=== PATIENT | male | born 1955 | race Caucasian/White ===

== ENCOUNTER → 2017-01-13 | Outpatient (CLI) | payer OTHER ==
--- NOTE | 2017-01-13 08:11 | CT ---
EXAMINATION TYPE: CT abdomen w con DATE OF EXAM: 01/13/2017 COMPARISON: NONE INDICATION: Left upper quadrant pain DLP: 1372 mGycm, Automated exposure control for dose reduction was used. CONTRAST: 100 mL of Omnipaque 300. Study performed with Oral Contrast TECHNIQUE: Axial images were obtained from above the diaphragm to the pubic rami in the axial plane a t 5 mm thick sections. Reconstructed images are reviewed on the computer in the coronal plane. FINDINGS: Limited CT sections are obtained the lung bases. The lung bases are clear. CT ABDOMEN: Liver: Normal Spleen: Normal Pancreas: Normal Adrenal glands: The adrenal glands are normal. Gallbladder: Some minimal fluid is adjacent to the gallbladder. A large gallstone is within the proxi mal gallbladder. Correlate for cholecystitis. No obvious common duct dilatation is evident. Kidneys: No masses are evident. No hydronephrosis is present. No cysts are present. Delayed images were obtained through the kidneys, tiny cortical renal cysts of the superior right kidney is evident . Aorta: Vascular calcification is within the aorta. Inferior vena cava: Normal. Loops of bowel within the abdomen and pelvis are normal. There are loops of bowel which are incom pletely distended or lack oral contrast limiting their evaluation. IMPRESSIONS: 1. Clinical consideration for acute cholecystitis is recommended. Consider correlation with ultrasou nd. 2. Moderate fecal debris throughout the visualized colon. No obstruction is evident.
== END | disposition home or self-care (01) ==
LOC: RADCTMAIN 06:14
PROVIDERS: ATTEND Family Medicine
DX: R10.12 Left upper quadrant pain (principal)
CPT/HCPCS: 74160; Q9967

== ENCOUNTER 2017-01-23 10:05 | Day surgery (SDC) | payer OTHER ==
[2017-01-22 08:36] VITALS: BMI 33.0
[~2017-01-23 10:05] MED LIST: DEXAMETHASONE SOD PHOSPHATE 10 MG/ML 1 ML VIAL IV ONE; HEPARIN SODIUM,PORCINE 5,000 UNIT/ML 1 ML VIAL SQ ONE; LACTATED RINGERS 1,000 ML IV SCH; MIDAZOLAM 2 MG/2 ML VIAL IV PRN; ONDANSETRON 4 MG/2 ML VIAL IVP ONE; SCOPOLAMINE 1.5MG/72HR PATCH TRANSDERM ONE; ceFAZolin 2 GM in SODIUM CHLORIDE 0.9% 100 ML IVPB ONE
[2017-01-23] MEDS ORDERED: LIDOCAINE 1% 20 ML VIAL (10MG/ML) FOR IV START INTRADERMA ONE (11:00)
[2017-01-23 11:23] VITALS: TEMP 97.9
--- NOTE | 2017-01-23 13:14 | P.GSHP ---
History of Present Illness H&P Date: 01/23/17 Chief Complaint: Right upper quadrant pain This is a 61-year-old male who has had complaints right quadrant pain. Patient recent HIDA scan which was abnormal ejection fraction. He presents today for laparoscopic cholecystectomy. Past Medical History Past Medical History: Deep Vein Thrombosis (DVT), Hyperlipidemia, Osteoarthritis (OA) Additional Past Medical History / Comment(s): HAND TREMORS, DVT RT LEG AFTER KNEE REPLACEMENT, HX OF INFECTION POST-OP RIGHT KNEE W/MRSA 2014, generalized abd. pain History of Any Multi-Drug Resistant Organisms: MRSA Date of last positivie culture/infection: 08/30/14 MDRO Source:: RIGHT KNEE Past Surgical History: Joint Replacement, Orthopedic Surgery Additional Past Surgical History / Comment(s): LEFT KNEE ARTHROSCOPY, RT KNEE REPLACEMENT - REVISION OF RT KNEE REPLACEMENT ON 06/2014 AND 08/2014., HX OF PICC LINE 08/2014. Revision Right knee 11/28/14 Past Anesthesia/Blood Transfusion Reactions: No Reported Reaction, Motion Sickness Smoking Status: Current every day smoker - Past Family History Mother Family Medical History: Cancer Additional Family Medical History / Comment(s): BRAIN CA Father Family Medical History: Diabetes Mellitus Medications and Allergies Home Medications Medication Instructions Recorded Confirmed Type Atorvastatin [Lipitor] 20 mg PO DAILY 09/20/13 01/23/17 History Magnesium 200 mg PO DAILY 01/22/17 01/23/17 History Primidone [Mysoline] 100 mg PO DAILY 01/22/17 01/23/17 History buPROPion XL [Wellbutrin Xl] 150 mg PO DAILY 01/22/17 01/23/17 History Allergies Allergy/AdvReac Type Severity Reaction Status Date / Time No Known Allergies Allergy Verified 01/23/17 10:43 Surgical - Exam Vital Signs Temp Pulse Resp BP Pulse Ox 97.9 F 75 18 129/83 98 01/23/17 10:40 01/23/17 10:40 01/23/17 10:40 01/23/17 10:40 01/23/17 10:40 - General well developed, no distress - Eyes PERRL - ENT normal pinna - Neck no masses - Respiratory normal expansion - Cardiovascular Rhythm: regular - Abdomen Abdomen: soft, non tender Assessment and Plan Plan: Right upper quadrant pain. We'll perform laparoscopic cholecystectomy.
[2017-01-23] MEDS ORDERED: NEOSTIGMINE 1 MG/ML 10 ML VIAL ONE (13:20)
[2017-01-23] MEDS ORDERED: LIDOCAINE 1% INJ 10MG/ML (20 ML MDV) ONE (13:20)
[2017-01-23] MEDS ORDERED: fentaNYL (PF) 50 MCG/ML 2 ML AMP ONE (13:20)
[2017-01-23] MEDS ORDERED: PHENYLEPHRINE-0.9% NACL SYG 1 MG/10 ML SYRINGE ONE (13:20)
[2017-01-23] MEDS ORDERED: ROCURONIUM BROMIDE 10 MG/ML 10 ML VIAL IV ONE (13:20)
[2017-01-23] MEDS ORDERED: MIDAZOLAM 2 MG/2 ML VIAL ONE (13:20)
[2017-01-23] MEDS ORDERED: HYDROmorphone (PF) 1 MG/ML ONE (13:20)
[2017-01-23] MEDS ORDERED: GLYCOPYRROLATE 0.2 MG/ML 2 ML VIAL ONE (13:20)
[2017-01-23] MEDS ORDERED: PROPOFOL 10 MG/ML 20 ML VIAL IV ONE (13:20)
[2017-01-23] MEDS ORDERED: SUCCINYLCHOLINE CHLORIDE 100 MG/5 ML SYR IV ONE (13:20)
[2017-01-23] MEDS ORDERED: BUPIVACAINE (PF) 0.25% 30 ML VIAL SQ ONE ×2 (13:41)
[2017-01-23] MEDS ORDERED: LACTATED RINGERS 1,000 ML IV ONE (14:06)
--- NOTE | 2017-01-23 14:46 | P.OP ---
Date of Procedure: 01/23/17 Preoperative Diagnosis: Cholecystitis Postoperative Diagnosis: Cholelithiasis Acute Cholecystitis Hydrops gallbladder Procedure(s) Performed: Laparoscopic cholecystectomy Anesthesia: AUBREY Surgeon: Blake Aden Estimated Blood Loss (ml): 100 Pathology: other (Gallbladder) Condition: stable Disposition: PACU Description of Procedure: The patient was placed on the operating table. The patient received a general endotracheal tube anesthesia. The patients abdomen was prepped and draped in the usual sterile fashion. Through an infraumbilical stab incision, the fascia of the anterior abdominal wall was grasped with a pair of Kochers and then the Veress needle was placed in the peritoneal cavity. Position of the Veress needle was confirmed with positive drop test. The abdomen was then insufflated. After adequate insufflation, the 10 mm trocar was placed in the peritoneal cavity. Following this the laparoscope was placed in the peritoneal cavity. The patient was placed in the head-up, right side up position and then a 5 mm trocar was placed in the right lateral and right subcostal position under direct visualization. A 8 mm trocar was placed in the epigastric position. The gallbladder was acutely inflamed. There appeared to be hydrops of gallbladder. There was a stone impacted in the neck of the gallbladder. The gallbladder was grasped in the fundus and infundibulum. Traction on the gallbladder was placed in the lateral and the cephalad positions. The triangle of Calot was visualized.. The cystic duct was bluntly dissected until the union of the cystic duct and common bile duct was seen. The cystic duct was then divided and sealed with the Harmonic scissors. A PDS Endoloop was then placed throughout the cystic duct stump. The cystic artery divided and sealed with the Harmonic scissors. The gallbladder was then removed from the liver bed using Harmonic scissors. The gallbladder was then extracted through the epigastric port site. Operative field was checked for any bleeding spots and Harmonic scissors was used to coagulate the liver bed. The abdomen was irrigated. The trocars were removed. The skin was closed using interrupted 3-0 Vicryl suture. Dermabond dressing were applied. The patient tolerated the procedure well.
[2017-01-23 14:51] VITALS: RESP 16
[2017-01-23] MEDS: HYDROmorphone 1 MG/ML 1 ML SYRINGE IVP PRN ×2 (15:25→15:35)
[2017-01-23] MEDS ORDERED: HYDROcodone/APAP 7.5-325MG 1 EACH TAB PO ONE (16:16)
[2017-01-23 17:02] VITALS: BP 136/80; PULSE 78
== END 2017-01-23 17:19 | disposition home or self-care (01) ==
LOC: OR 10:05
PROVIDERS: ATTEND Surgery
DX: K80.12 Calculus of gallbladder with acute and chronic cholecystitis without obstruction (principal); E78.5 Hyperlipidemia, unspecified; M19.90 Unspecified osteoarthritis, unspecified site; F17.200 Nicotine dependence, unspecified, uncomplicated; Z86.718 Personal history of other venous thrombosis and embolism; G25.0 Essential tremor; Z79.899 Other long term (current) drug therapy
CPT/HCPCS: 88304; 47562; J2250; J1644; J1100; J2710; J0690; J2405; J2001; J3010; J1170; J2370; J0330; J2704

== ENCOUNTER 2017-06-30 07:17 | Day surgery (SDC) | payer OTHER ==
[2017-06-25 13:48] VITALS: BMI 33.2
[~2017-06-30 07:17] MED LIST changes: -DEXAMETHASONE SOD PHOSPHATE 10 MG/ML 1 ML VIAL IV ONE; -HEPARIN SODIUM,PORCINE 5,000 UNIT/ML 1 ML VIAL SQ ONE; -MIDAZOLAM 2 MG/2 ML VIAL IV PRN; -ONDANSETRON 4 MG/2 ML VIAL IVP ONE; -SCOPOLAMINE 1.5MG/72HR PATCH TRANSDERM ONE; -ceFAZolin 2 GM in SODIUM CHLORIDE 0.9% 100 ML IVPB ONE
[2017-06-30] MEDS ORDERED: LACTATED RINGERS 1,000 ML IV ONE ×2 (07:36)
[2017-06-30 07:41] VITALS: RESP 18; TEMP 97.7
[2017-06-30] MEDS ORDERED: PROPOFOL 10 MG/ML 20 ML VIAL IV ONE (08:12)
--- NOTE | 2017-06-30 08:40 | P.PCN ---
Date of Procedure: 06/30/17 Procedure(s) Performed: Procedure: Total colonoscopy with biopsies. Preoperative diagnosis: Screening for neoplasia. Postoperative diagnosis: 2 diminutive polyps in the distal sigmoid consistent with hyperplastic polyps, biopsied, but no large polyps or cancer. Preparation: HalfLytely prep. Sedation: Was provided by anesthesia. Brief clinical history: The patient is a 61-year-old male who is scheduled for this evaluation for screening for neoplasia. The patient has family history of colon cancer in his father. He had a colonoscopy around 10 years ago. He has no abdominal complaints, bleeding or anemia. Procedure: With the patient on his left lateral decubitus position and after informed consent and adequate sedation, the perianal area was inspected and it did not show any fissures or fistulas. There were no masses felt on digital rectal examination. The Olympus CFQ 160L video colonoscope was then inserted in the rectum in the usual fashion and advanced to the cecum. There were 2 diminutive polyps in the distal sigmoid consistent with hyperplastic polyps which I biopsied, but there were no large polyps or cancer. No obvious diverticular disease or other pathology. I retroflexed the endoscope in the rectum before the endoscope was withdrawn. The patient tolerated the procedure well. Plan: The patient was reassured. In light of his history, I recommended repeat exam in 5 years. He will follow up with you as planned.
[2017-06-30 08:55] VITALS: BP 107/60; PULSE 78
== END 2017-06-30 09:22 | disposition home or self-care (01) ==
LOC: ORWHC2ENDO 07:17
DX: Z12.11 Encounter for screening for malignant neoplasm of colon (principal); D12.5 Benign neoplasm of sigmoid colon; Z80.0 Family history of malignant neoplasm of digestive organs; M19.90 Unspecified osteoarthritis, unspecified site; E78.5 Hyperlipidemia, unspecified; Z86.718 Personal history of other venous thrombosis and embolism; Z79.899 Other long term (current) drug therapy
CPT/HCPCS: 88305; 45380; J2704

== ENCOUNTER → 2017-08-17 | Outpatient (CLI) | payer OTHER ==
--- NOTE | 2017-08-17 09:44 | FL ---
ESOPHOGRAM. HISTORY: Dysphagia Esophagram was performed per the air contrast technique. The patient swallowed barium and effervesce nt crystals without difficulty or delay. Esophageal peristalsis and motility appear to be within normal limits. There is no evidence for filling defect, mass or diverticulum. No hiatal hernia seen. Subsequently single contrast cervical esophagram was performed which fails demonstrate evidence for m ass. Mild aspiration is noted. There is extrinsic mass effect upon the posterior esophagus at the C4- 5 level secondary to large anterior cervical osteophytes. IMPRESSION: 1. Aspiration. 2. Large C4-5 anterior osteophyte that results in posterior mass effect upon the cervical esophagus.
== END | disposition home or self-care (01) ==
LOC: RADFLMAIN 08:35
PROVIDERS: ATTEND Psychiatry & Neurology Neurology
DX: M25.78 Osteophyte, vertebrae (principal)
CPT/HCPCS: 74220

== ENCOUNTER → 2017-08-27 | Outpatient (CLI) | payer OTHER ==
--- NOTE | 2017-08-27 08:49 | MR ---
MRI BRAIN AND CERVICAL SPINE: 08/27/2017 CLINICAL HISTORY: Essential tremors, neck pain, and dysphagia. TECHNIQUE: Multiplanar, multisequence imaging of the cervical spine is performed without intravenous contrast. Multiplanar, multisequence images of the brain and brainstem is performed without intraveno us contrast. COMPARISON: CT brain dated 05/05/2015 FINDINGS: Brain: Diffusion weighted images demonstrate no evidence of a recent infarct or other diffusion abnor mality. There is no extra-axial fluid collection. Minimal periventricular white matter changes seen anterior to the frontal horns of the lateral ventricles. The remainder of the white matter signal is unremarkable. The ventricular system and cisternal spaces are normal in size and appearance. The bra in volume is age appropriate. Midline structures demonstrate normal morphology. The craniocervical junction appears within normal limits. Post contrast images demonstrate no abnormal enhancement. The dural venous sinuses appear pa tent. There is circumferential mild mucosal thickening of the frontal sinuses and moderate mucosal th ickening of the ethmoid sinuses. Secretions are retained within the posterior nasopharynx. The spheno id sinuses and maxillary sinuses are well aerated as are the mastoid air cells on the left. There is partial opacification of the right mastoid air cells. Major intracranial flow voids are maintained. T he visualized sinuses are clear and the globes are intact. Cervical spine: There is straightening of usual cervical lordosis. There is a subcentimeter T1/T2 hyperintense verteb ral body hemangioma of C5. Otherwise the bone marrow signal is unremarkable. Multilevel disc desiccat ion is identified. Anterior osteophytes, uncovertebral hypertrophy and facet arthropathy are also see n at multiple levels. C2-C3: No significant disc disease, spinal canal stenosis or neural foraminal narrowing. C3-C4: There is a bilobed large disc bulge and right lateral disc herniation creating effacement of t he ventral subarachnoid space. There is also ligamentum flavum buckling at this level resulting in mi ld to moderate spinal canal stenosis. No significant abnormal spinal cord signal at this level to ind icate myelomalacia or cord edema. There is severe right neural foraminal narrowing and moderate left neural foraminal narrowing. Facet arthropathy contribute to these findings. C4-C5: There is a broad-based disc bulge, uncovertebral hypertrophy and facet arthropathy that create moderate right and mild left neural foraminal narrowing. No spinal canal stenosis. C5-C6: There is a broad-based disc bulge, facet arthropathy and ligamentum flavum buckling that creat e moderate left and mild right neural foraminal narrowing and mild spinal canal stenosis with narrowi ng of the ventral subarachnoid space. C6-C7: There is a right eccentric broad-based disc bulge, uncovertebral hypertrophy and facet arthrop athy that severely narrow the right neural foramen and moderately narrow the left neural foramen. The re is also minimal narrowing of the ventral subarachnoid space creating mild spinal canal stenosis. C7-T1: There is a left eccentric broad-based disc bulge without significant spinal canal stenosis or neural foraminal narrowing. IMPRESSION: 1. No evidence of acute territorial infarct, midline shift or mass effect. 2. Very mild periventricular nonspecific white matter change, likely on the basis of chronic microang iopathy. 3. Mild paranasal sinus disease and partial opacification of the right mastoid air cells that may cli nically correlate with mastoiditis. Correlate with point tenderness. 4. Large bilobed disc bulge at C3-C4 and right lateral disc herniation resulting in mild to moderate spinal canal stenosis, severe right neural foraminal narrowing and moderate left neural foraminal antalya rowing. 5. Multilevel moderate degenerative disc disease resulting in mild spinal canal stenosis at C5-C7 and variable degrees of neural foraminal narrowing as described above. 6. Straightening of the usual cervical lordosis that may relate to muscular sprain or spasm.
== END | disposition home or self-care (01) ==
LOC: RADMRIMAIN 06:01
PROVIDERS: ATTEND Psychiatry & Neurology Neurology
DX: M48.02 Spinal stenosis, cervical region (principal); M99.71 Connective tissue and disc stenosis of intervertebral foramina of cervical region; M50.21 Other cervical disc displacement, high cervical region; M50.322 Other cervical disc degeneration at C5-C6 level; R90.89 Other abnormal findings on diagnostic imaging of central nervous system; R13.12 Dysphagia, oropharyngeal phase; R25.1 Tremor, unspecified
CPT/HCPCS: 70551; 72141

== ENCOUNTER → 2018-01-15 | Outpatient (CLI) | payer OTHER ==
--- NOTE | 2018-01-20 09:12 | P.ARTDOP ---
Arterial Doppler LOWER EXTREMITY ARTERIAL DOPPLER: DATE OF SERVICE: 01/15/2018 Reason for study: Bilateral ankle swelling. Left leg pain Doppler waveforms: Multiphasic bilaterally throughout on the right. Multiphasic at the femoral on the left and atypical below.. Pulse volume recording: Blunting distally on the left. Pressure gradients: Fem-pop area on the left. Ankle-brachial indices: Greater than 1 on the right and 0.8 on the left. Toe pressures: 60 on the right, 50 on the left Impression: Normal except for toe pressures on the right which could be vasospastic or less likely distal disease. Mild left fem-pop disease tissue perfusion appears adequate for healing. Clinical correlation recommended..
== END | disposition home or self-care (01) ==
LOC: RADUSWWP 12:39
PROVIDERS: ATTEND Family Medicine
DX: I77.89 Other specified disorders of arteries and arterioles (principal)
CPT/HCPCS: 93923

== ENCOUNTER 2020-01-12 18:47 | Emergency (ER) | payer MEDICARE, OTHER ==
[2020-01-12 19:02] VITALS: RESP 18
--- NOTE | 2020-01-12 19:15 | ED ---
General Adult HPI - General Chief complaint: Extremity Problem,Nontraumatic Stated complaint: Calf pain Time Seen by Provider: 01/12/20 19:03 Source: patient, RN notes reviewed Mode of arrival: ambulatory Limitations: no limitations - History of Present Illness Initial comments: 64-year-old male with a past medical history of hyperlipidemia, DVT presents to the emergency room for a chief complaint of left calf pain. Patient reports that he has had a "cramp" in his left calf for 2 days. However patient states it feels like it could be a DVT. Patient had a DVT of the arm and leg in 2014 after having a knee replacement. Patient reports he was on Eliquis for years but decided to take himself off of it without speaking to his doctor. Patient states he does notice some mild swelling of the ankle. Patient denies any chest pain or shortness of breath whatsoever.Patient has no other complaints at this time including shortness of breath, chest pain, abdominal pain, nausea or vomiting, headache, or visual changes. - Related Data Home Medications Medication Instructions Recorded Confirmed Primidone [Mysoline] 100 mg PO DAILY 01/22/17 06/25/17 buPROPion XL [Wellbutrin Xl] 150 mg PO DAILY 01/22/17 06/25/17 Atorvastatin [Lipitor] 20 mg PO DAILY 06/25/17 06/25/17 Previous Rx's Medication Instructions Recorded Apixaban [Eliquis Starter Pack 0 mg PO DIRECTED 30 Days #1 pack 01/12/20 (for VTE)] Allergies Allergy/AdvReac Type Severity Reaction Status Date / Time No Known Allergies Allergy Verified 01/12/20 19:02 Review of Systems ROS Statement: Those systems with pertinent positive or pertinent negative responses have been documented in the HPI. ROS Other: All systems not noted in ROS Statement are negative. Past Medical History Past Medical History: Deep Vein Thrombosis (DVT), Hyperlipidemia, Osteoarthritis (OA) Additional Past Medical History / Comment(s): HAND TREMORS, DVT RT LEG AFTER KNEE REPLACEMENT, hx blood clot left arm, History of Any Multi-Drug Resistant Organisms: MRSA Date of last positivie culture/infection: 08/30/14 MDRO Source:: RIGHT KNEE Past Surgical History: Cholecystectomy, Joint Replacement, Orthopedic Surgery Additional Past Surgical History / Comment(s): rt knee replacement, then revision x 2, left arthroscopy, PICC line x2-removed Past Anesthesia/Blood Transfusion Reactions: Motion Sickness Past Psychological History: No Psychological Hx Reported Smoking Status: Current every day smoker Past Alcohol Use History: Rare Past Drug Use History: None Reported - Past Family History Mother Family Medical History: Cancer Additional Family Medical History / Comment(s): BRAIN CA Father Family Medical History: Diabetes Mellitus General Exam Limitations: no limitations General appearance: alert, in no apparent distress Head exam: Present: atraumatic, normocephalic, normal inspection Eye exam: Present: normal appearance, PERRL, EOMI. Absent: scleral icterus, conjunctival injection, periorbital swelling ENT exam: Present: normal exam, mucous membranes moist Neck exam: Present: normal inspection. Absent: tenderness, meningismus, lymphadenopathy Respiratory exam: Present: normal lung sounds bilaterally. Absent: respiratory distress, wheezes, rales, rhonchi, stridor Cardiovascular Exam: Present: regular rate, normal rhythm, normal heart sounds. Absent: systolic murmur, diastolic murmur, rubs, gallop, clicks GI/Abdominal exam: Present: soft, normal bowel sounds. Absent: distended, tenderness, guarding, rebound, rigid Extremities exam: Present: full ROM (Full range motion of the left lower extremity.), normal capillary refill (Capillary refill less than 2 seconds, DP pulse 2+.), calf tenderness (Tenderness noted to the left calf with mild left ankle edema.) Course Vital Signs 01/12/20 18:58 Temperature 99.3 F Pulse Rate 81 Respiratory 18 Rate Blood Pressure 158/81 O2 Sat by Pulse 100 Oximetry Medical Decision Making - Medical Decision Making Ultrasound of the left lower extremity shows occlusive DVT involving the left popliteal vein and proximal calf vein. Remainder of the deep venous system widely patent. Patient adamantly denies any chest pain or shortness of breath. Vitals are stable. Basic labs are obtained. Patient was started on Eliquis. He has not had any recent bleeding. No history of hemorrhagic stroke. Patient is aware of risks of blood thinners as he used to take these and is supposed to be on them. Patient was given a 30 day free voucher and prescription was written. He was given a dose in the emergency room. He will follow-up with his doctor. I did stress the importance of following up with his doctor as well as a possible hematology evaluation as this is patient's third DVT and he has not had eval. Disposition Clinical Impression: DVT (deep venous thrombosis) Disposition: HOME SELF-CARE Condition: Good Instructions (If sedation given, give patient instructions): Deep Vein Thrombosis (ED) Additional Instructions: Please take Eliquis as directed. It is very important you follow-up with your primary care doctor and will likely need referral to hematology for further evaluation. If you have any worsening symptoms return to the emergency room. Prescriptions: Apixaban [Eliquis Starter Pack (for VTE)] 0 mg PO DIRECTED 30 Days #1 pack Is patient prescribed a controlled substance at d/c from ED?: No Referrals: Venu Kruger DO [Primary Care Provider] - 1-2 days Time of Disposition: 20:34
--- NOTE | 2020-01-12 20:02 | US ---
EXAMINATION TYPE: US venous doppler duplex LE LT DATE OF EXAM: 01/12/2020 7:36 PM COMPARISON: 01/26/2000 CLINICAL HISTORY: pain. Hx of DVT. Pain in left leg x 2 days. Patient does not take a blood thinner. SIDE PERFORMED: Left TECHNIQUE: The lower extremity deep venous system is examined utilizing real time linear array sonog quiana with graded compression, doppler sonography and color-flow sonography. VESSELS IMAGED: External Iliac Vein (EIV) Common Femoral Vein Deep Femoral Vein Greater Saphenous Vein * Femoral Vein Popliteal Vein Small Saphenous Vein * Proximal Calf Veins (* superficial vessels) FINDINGS: There are internal echoes throughout the left popliteal and extending to involve left proxi mal calf veins. Vessels do not compress and show little if any color Doppler flow. Remainder of the deep venous system of the left lower extremity widely patent LEFT LOWER EXTREMITY IMPRESSION: POSITIVE FOR OCCLUSIVE DEEP VENOUS THROMBOSIS INVOLVING THE LEFT POPLITEAL VEIN AND PROXIMAL CALF VEI NS.
[2020-01-12] MEDS ORDERED: APIXABAN 5 MG TAB PO STA (20:29)
[2020-01-12] MEDS ORDERED: ACET/COD 300 MG/30 MG STARTER PACK 6 TAB BTL PO STA (20:56)
[2020-01-12 21:08] LABS: Basophils # (A) 0.1 k/uL (0-0.2); Basophils % (A) 1 %; Eosinophils # (A) 0.5 k/uL (0-0.7); Eosinophils % (A) 4 %; HCT 49.1 % (39.0-53.0); HGB 16.3 gm/dL (13.0-17.5); Lymphocytes # (A) 4.1 k/uL (1.0-4.8); Lymphocytes % (A) 32 %; MCH 31.2 pg (25.0-35.0); MCHC 33.1 g/dL (31.0-37.0); MCV 94.4 fL (80.0-100.0); Mean Platelet Volume 6.7; Monocytes # (A) 1.1 k/uL (0-1.0); Monocytes % (A) 8 %; Neutrophils % (A) 54 %; Platelet Count 249 k/uL (150-450); RDW 14.1 % (11.5-15.5)
[2020-01-12 21:34] LABS: ALT 31 U/L (4-49); AST 26 U/L (17-59); African American GFR (CKD) >90 (>60 ml/min/1.73 sqM); Alkaline Phosphatase 112 U/L (38-126); Anion Gap 7 mmol/L; Blood Urea Nitrogen 14 mg/dL (9-20); Calcium 9.9 mg/dL (8.4-10.2); Carbon Dioxide 24 mmol/L (22-30); Chloride 104 mmol/L (98-107); Glucose 107 mg/dL (74-99); Non-African American GFR(CKD) >90 (>60 ml/min/1.73 sqM); Potassium 4.2 mmol/L (3.5-5.1); Sodium 135 mmol/L (137-145); Total Bilirubin 0.6 mg/dL (0.2-1.3); Total Protein 6.7 g/dL (6.3-8.2)
[2020-01-12 21:55] LABS: Partial Thromboplastin Time 25.8 sec (22.0-30.0)
[2020-01-12 22:10] VITALS: BP 138/78; PULSE 77; TEMP 99
== END 2020-01-12 20:55 | disposition home or self-care (01) ==
LOC: EC 18:47
DX: I82.432 Acute embolism and thrombosis of left popliteal vein (principal); I82.4Z2 Acute embolism and thrombosis of unspecified deep veins of left distal lower extremity; E78.5 Hyperlipidemia, unspecified; F17.200 Nicotine dependence, unspecified, uncomplicated; Z79.899 Other long term (current) drug therapy; Z96.651 Presence of right artificial knee joint
CPT/HCPCS: 36415; 80053; 85025; 85610; 85730; 99284

== ENCOUNTER 2020-04-03 19:45 | Emergency (ER) | payer MEDICARE ==
[2020-04-03 20:07] VITALS: TEMP 98.5
--- NOTE | 2020-04-03 21:38 | XR ---
EXAMINATION TYPE: XR knee complete LT DATE OF EXAM: 04/03/2020 COMPARISON: 08/30/2014 HISTORY: TECHNIQUE: 4 views FINDINGS: There is moderate narrowing of the medial joint space. There is no fracture nor dislocation . There is no definite joint effusion. There is spurring on the patella. IMPRESSION: Moderately severe osteoarthritis mainly in the medial joint space.
--- NOTE | 2020-04-03 22:23 | US ---
EXAMINATION TYPE: US venous doppler duplex LE LT DATE OF EXAM: 04/03/2020 10:15 PM COMPARISON: 2019 CLINICAL HISTORY: pain, hx dvt. Pain left leg x 1 day. Hx DVT. Patient takes eliquis. SIDE PERFORMED: Left TECHNIQUE: The lower extremity deep venous system is examined utilizing real time linear array sonog quinaa with graded compression, doppler sonography and color-flow sonography. VESSELS IMAGED: Common Femoral Vein Deep Femoral Vein Greater Saphenous Vein * Femoral Vein Popliteal Vein Small Saphenous Vein * Proximal Calf Veins (* superficial vessels) Left Leg: There appear to be internal echoes within the left distal popliteal vein and prox calf vei ns. Color defect/ little color flow seen in portions of these veins. Vessel does not appear to fully compress at these segments. IMPRESSION: There is evidence for some chronic deep vein thrombosis in the left calf.
[2020-04-03 22:33] VITALS: BP 137/79; PULSE 78; RESP 16
[2020-04-03] MEDS ORDERED: ACET/COD 300 MG/30 MG STARTER PACK 6 TAB BTL PO STA (22:40)
--- NOTE | 2020-04-03 22:42 | ED ---
General Adult HPI - General Chief complaint: Extremity Problem,Nontraumatic Stated complaint: Left knee pain Time Seen by Provider: 04/03/20 20:12 Source: patient, RN notes reviewed, old records reviewed Mode of arrival: wheelchair Limitations: no limitations - History of Present Illness Initial comments: 64-year-old male patient with history of a DVT present due to complaint of left knee pain which began today. Patient works that the pain is primarily in the lateral aspect of the knee he reports that when he walks he feels that his knees giving out on him. He denies any falls or trauma. Has a history of a DVT in January. He has been taking his anticoagulation. Denies chest pain shortness breath or any other acute complaints. Systemic: Pt denies fatigue, fever/chills, rash. Pt denies weakness, night sweats, weight loss. Neuro: Pt denies headache, visual disturbances, syncope or pre-syncope. HEENT: Pt denies ocular discharge or irritation, otalgia, rhinorrhea, pharyngitis or notable lymphadenopathy. Cardiopulmonary: Pt denies chest pain, SOB, heart palpitations, dyspnea on exertion. Abdominal/GI: Pt denies abdominal pain, n/v/d. : Pt denies dysuria, burning w/ urination, frequency/urgency. Denies new onset urinary or bowel incontinence. MSK: Pt denies loss of strength or function in extremities. Neuro: Pt denies new onset weakness, paresthesias. - Related Data Home Medications Medication Instructions Recorded Confirmed Primidone [Mysoline] 100 mg PO DAILY 01/22/17 01/12/20 buPROPion XL [Wellbutrin Xl] 150 mg PO DAILY 01/22/17 01/12/20 Atorvastatin [Lipitor] 20 mg PO DAILY 06/25/17 01/12/20 Previous Rx's Medication Instructions Recorded Apixaban [Eliquis Starter Pack 0 mg PO DIRECTED 30 Days #1 pack 01/12/20 (for VTE)] Allergies Allergy/AdvReac Type Severity Reaction Status Date / Time No Known Allergies Allergy Verified 04/03/20 20:07 Review of Systems ROS Statement: Those systems with pertinent positive or pertinent negative responses have been documented in the HPI. ROS Other: All systems not noted in ROS Statement are negative. Past Medical History Past Medical History: Deep Vein Thrombosis (DVT), Hyperlipidemia, Osteoarthritis (OA) Additional Past Medical History / Comment(s): HAND TREMORS, DVT RT LEG AFTER KNEE REPLACEMENT, hx blood clot left arm, History of Any Multi-Drug Resistant Organisms: MRSA Date of last positivie culture/infection: 08/30/14 MDRO Source:: RIGHT KNEE Past Surgical History: Cholecystectomy, Joint Replacement, Orthopedic Surgery Additional Past Surgical History / Comment(s): rt knee replacement, then revision x 2, left arthroscopy, PICC line x2-removed Past Anesthesia/Blood Transfusion Reactions: Motion Sickness Past Psychological History: No Psychological Hx Reported Smoking Status: Current every day smoker Past Alcohol Use History: Rare Past Drug Use History: None Reported - Past Family History Mother Family Medical History: Cancer Additional Family Medical History / Comment(s): BRAIN CA Father Family Medical History: Diabetes Mellitus General Exam - General Exam Comments Initial Comments: Constitutional: NAD, AOX3, Pt has pleasant affect. HEENT: NC/AT, trachea midline, neck supple, no lymphadenopathy. External ears appear normal, without discharge. Mucous membranes moist. Eyes PERRLA, EOM intact. There is no scleral icterus. No pallor noted. Cardiopulmonary: RRR, no murmurs, rubs or gallops, no JVD noted. Lungs CTAB in anterior and posterior lopez. No peripheral edema. Abdominal exam: Abdomen soft and non-distended. Abdomen non-tender to palpation in all 4 quadrants. Bowel sounds active in LLQ. No hepatosplenomegaly. No ecchymosis Neuro: CN II-XII grossly intact. No nuchal rigidity. MSK: Very mild tenderness to the anterior knee and reproducible with ROM. Homans sign negative bilaterally. Posterior tibialis and radial pulse +2 bilaterally. Sensation intact in upper and lower extremities. Full active ROM in upper and lower extremities. distal pulses intact and equal. Limitations: no limitations Course Vital Signs 04/03/20 04/03/20 20:03 22:31 Temperature 98.5 F Pulse Rate 88 78 Respiratory 18 16 Rate Blood Pressure 155/85 137/79 O2 Sat by Pulse 98 94 L Oximetry Medical Decision Making - Medical Decision Making 64-year-old male patient ED were knee pain 1 day. History of DVT. Then films displayed as moderate to severe osteoarthritis male in the medial joint space. Ultrasound displays chronic deep venous thrombosis. Patient discharged with outpatient follow-up with orthopedics and return precautions. Case discussed with Dr. Lloyd. Disposition Clinical Impression: Knee pain Disposition: HOME SELF-CARE Condition: Stable Instructions (If sedation given, give patient instructions): Knee Pain (ED) Additional Instructions: Follow up with orthopedic consult tomorrow. Follow up with PCP tomorrow. Use crutches as needed. Return to ED with any worsening symptoms. Is patient prescribed a controlled substance at d/c from ED?: No Referrals: Venu Kruger DO [Primary Care Provider] - 1-2 days
== END 2020-04-03 23:10 | disposition home or self-care (01) ==
LOC: EC 19:45
DX: I82.5Z2 Chronic embolism and thrombosis of unspecified deep veins of left distal lower extremity (principal); M17.12 Unilateral primary osteoarthritis, left knee; E78.5 Hyperlipidemia, unspecified; F17.200 Nicotine dependence, unspecified, uncomplicated; Z79.899 Other long term (current) drug therapy; Z96.651 Presence of right artificial knee joint
CPT/HCPCS: 99284

== ENCOUNTER → 2020-05-17 | Outpatient (CLI) | payer MEDICARE ==
[2020-05-17 11:22] LABS: Basophils # (A) 0.1 k/uL (0-0.2); Basophils % (A) 1 %; Eosinophils # (A) 0.2 k/uL (0-0.7); Eosinophils % (A) 2 %; HCT 52.2 % (39.0-53.0); HGB 16.6 gm/dL (13.0-17.5); Lymphocytes # (A) 3.4 k/uL (1.0-4.8); Lymphocytes % (A) 32 %; MCHC 31.8 g/dL (31.0-37.0); MCV 94.4 fL (80.0-100.0); Mean Platelet Volume 6.5; Monocytes # (A) 0.7 k/uL (0-1.0); Monocytes % (A) 6 %; Neutrophils # (A) 5.9 k/uL (1.3-7.7); Neutrophils % (A) 57 %; Platelet Count 347 k/uL (150-450); RBC 5.53 m/uL (4.30-5.90); WBC 10.4 k/uL (3.8-10.6)
[2020-05-17 18:07] LABS: Hemoglobin A1C 6.3 % (4.0-6.0)
[2020-05-17 19:33] LABS: INR 0.96 (0.90-1.11); Partial Thromboplastin Time 28.5 sec (23.5-31.0); Prothrombin Time 10.4 sec (9.9-11.9)
[2020-05-17 20:55] LABS: African American GFR (CKD) 93.1 (60.0-200.0); Albumin 4.3 g/dL (3.80-4.90); Albumin/Globulin Ratio 1.95 (1.60-3.17); Anion Gap 9.9 mmol/L (4.00-12.00); Carbon Dioxide 25.1 mmol/L (21.6-31.8); Globulin 2.2 g/dL (1.6-3.3); Non-African American GFR(CKD) 80.3 (60.0-200.0); Total Bilirubin 0.3 mg/dL (0.3-1.2); Total Protein 6.5 g/dL (6.2-8.2)
== END | disposition home or self-care (01) ==
LOC: LABWHC1 10:37
PROVIDERS: ATTEND Family Medicine
DX: Z01.818 Encounter for other preprocedural examination (principal)
CPT/HCPCS: 36415; 80053; 83036; 85025; 85610; 85730

== ENCOUNTER → 2021-01-21 | Outpatient (CLI) | payer MEDICARE ==
--- NOTE | 2021-01-21 11:44 | EST ---
EXERCISE STRESS AGE: 65 SEX: M HT: 5'9" WT: 507 lbs. PROTOCOL: Kan STAGE: 3 DURATION OF EXERCISE: 6 min HEART RATE REST: 67 BLOOD PRESSURE REST: 117/72 MAXIMUM HEART RATE ACHIEVED: 132 MAXIMUM BLOOD PRESSURE: 192/63 85% MPHR: 133 100% MPHR: 157 METS: 5.9 INDICATIONS: Chest pain. CLINICAL INFORMATION: STRESS DATA: Heart rate 67, pressure 117/72. Baseline EKG showed sinus mechanism. The patient exercised on the treadmill according to Kan protocol for a total of 6 minutes and achieved 5.9 METS. Max heart rate was 132, which is about 84% of maximum predicted heart rate, and maximum blood pressure was 192/68 mmHg. Clinically the patient did not have any chest pain or chest discomfort but developed shortness of breath. The EKG did not show any significant ST or T-wave abnormalities concerning for ischemia. CONCLUSION: 1. Good exercise tolerance. 2. Normal EKG in response to exercise. MMODL / IJN: [id number] /
== END | disposition home or self-care (01) ==
LOC: RADNMMAIN 08:07
PROVIDERS: ATTEND Family Medicine
DX: R07.9 Chest pain, unspecified (principal)
CPT/HCPCS: 93017